=== PATIENT | male | born 1980 | race African-American/Black ===

== ENCOUNTER 2017-04-04 16:23 | Emergency (ER) | payer OTHER, BC ==
[2017-04-04] MEDS ORDERED: KETOROLAC TROMETHAMINE INJ/PF 30 MG/1 ML SDV IM ONE (17:04)
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
[2017-04-04 18:13] VITALS: BP 140/91
== END 2017-04-04 17:35 | disposition home or self-care (01) ==
LOC: ER 16:23
DX: M62.838 Other muscle spasm (principal); V89.2XXA Person injured in unspecified motor-vehicle accident, traffic, initial encounter; I10 Essential (primary) hypertension
CPT/HCPCS: 99283; 96372; J1885